=== PATIENT | male | born 1965 | race Caucasian/White ===

== ENCOUNTER 2018-11-15 08:42 | Inpatient (IN) | payer OTHER ==
[~2018-11-15] VITALS: Ht 177.8 cm; Wt 78.6 kg
[~2018-11-15 08:42] MED LIST: ESZO1TAB11 PO
--- NOTE | 2018-11-15 09:00 | NUR ---
patient came to the ER c/o flank pain started 2 days ago and worst today. On room air, breathing evenly and unlabored. connected to the monitor and pulse ox. kept comfortable, will continue to monitor accordingly.
[2018-11-15 09:18] LABS: BASOPHILS # (AUTO) 0.1 /CMM (0.0-0.2); BASOPHILS % (AUTO) 1.1 % (0.0-2.0); EOSINOPHILS % (AUTO) 2.5 % (0.0-6.0); HEMATOCRIT 44 % (39-51); LYMPHOCYTES # (AUTO) 2.1 /CMM (0.8-4.8); LYMPHOCYTES % (AUTO) 37.1 % (20.0-44.0); MEAN CORPUSCULAR HGB CONC 34 g/dl (31.0-36.0); MEAN CORPUSCULAR VOLUME 96 fL (80-96); MONOCYTES # (AUTO) 0.6 /CMM (0.1-1.30); MONOCYTES % (AUTO) 10.6 % (2.0-12.0); NEUTROPHILS # (AUTO) 2.7 /CMM (1.8-8.9); NEUTROPHILS % (AUTO) 48.7 % (43.0-81.0); PLATELET COUNT (AUTO) 179 /CMM (150-450); RED BLOOD CELL COUNT(AUTO) 4.57 MIL/uL (4.5-6.0); WHITE BLOOD COUNT (AUTO) 5.6 K/uL (4.3-11.0)
[2018-11-15 09:20] LABS: APPEARANCE,URINE Clear (CLEAR); BILIRUBIN,URINE Negative (NEGATIVE); BLOOD, URINE Trace-intact Ery/uL (NEGATIVE); COLOR,URINE Yellow (YELLOW); KETONES,URINE Negative (NEGATIVE); LEUKOCYTE ESTERASE ,URINE Negative (NEGATIVE); NITRITE, URINE Negative (NEGATIVE); PH,URINE 6.5 (5.0-8.0); PROTEIN,URINE Negative (NEGATIVE); UGLUCOSE Negative (NEGATIVE); UROBILINOGEN,URINE 0.2 EU/dL (0.2)
[2018-11-15 09:26] LABS: CALCIUM, SERUM 8.9 mg/dL (8.5-10.1); CREATININE 1.2 mg/dL (0.6-1.3); POTASSIUM 4.5 mmol/L (3.5-5.1)
[2018-11-15 09:28] LABS: BACTERIA,URINE None seen /HPF (None Seen); RBC,URINE 0-2 /HPF (0-2); SQUAMOUS EPITHELIAL CELL,UR Few /HPF (None Seen); WBC,URINE 0-2 /HPF (0-3)
[2018-11-15] MEDS ORDERED: ONDANSETRON HCL/PF - ER 4 MG/2 ML VIAL IV ONE (09:30)
[2018-11-15] MEDS ORDERED: MORPHINE SULFATE INJ 2 MG/ML DISP.SYRIN IV ONE ×3 (09:30→12:00)
[2018-11-15] MEDS ORDERED: KETOROLAC TROMETHAMINE INJ 30 MG/ML VIAL IV ONE ×2 (09:30→20:00)
[2018-11-15] MEDS ORDERED: MORPHINE SULFATE INJ 4 MG/ML DISP.SYRIN ONE ×3 (09:31→12:12)
[2018-11-15] MEDS ORDERED: KETOROLAC TROMETHAMINE INJ 30 MG/ML VIAL ONE (09:31)
[2018-11-15] MEDS ORDERED: ONDANSETRON HCL/PF 4 MG/2 ML VIAL ONE (09:31)
[2018-11-15 09:32] LABS: ALBUMIN 3.7 g/dL (3.4-5.0); BILIRUBIN,DIRECT 0.1 mg/dL (0.0-0.2); BILIRUBIN,TOTAL 0.7 mg/dL (0.2-1.0)
[2018-11-15] MEDS ORDERED: IV NS 0.9% 1,000 ML BAG IV ONE (10:00)
[2018-11-15] MEDS ORDERED: OMEP20CA10 PO (10:37)
--- NOTE | 2018-11-15 12:17 | NUR ---
ROOM 201
--- NOTE | 2018-11-15 12:54 | NUR ---
REPORT GIVEN TO PEDRO CHEN FOR KWAME
--- NOTE | 2018-11-15 13:00 | NUR ---
RN CONCURRENT REVIEW NOTES RECEIVED PATIENT FROM ER 53 Y/OLD MALE ON MED/SURG , Dx OF KIDNEY STONE. PATIENT A/O X4. PATIENT WAS COMPLAINING OF CONSTANT PAIN 6/10 PER PAIN SCALE ON LOWER BACK, AND RADIATED RIGHT FLANK AREA. PATIENT HAD NO ACUTE RESPIRATORY DISTRESS. V/S TAKEN BP -125/68, P-54, T-98, R-19, O2-96 ROOM AIR, IV ACCESS ON RIGHT AC AREA INTACT. SKIN ASSESSMENT DONE, SKIN INTACT. PATIENT AMBULATORY SELF CARE. GIVEN URINE STRAINER, AND EDUCATED. DR ADAME AWARE OF NEW PATIENT NAD MEDICATION. CONTINUED MONITORING.
[2018-11-15 13:03] VITALS: BP 125/68
--- NOTE | 2018-11-15 13:35 | NUR ---
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 PATIENT STABLE.
[2018-11-15] MEDS ORDERED: ZOLPIDEM TARTRATE 5 MG TABLET PO PRN (14:30)
[2018-11-15] MEDS ORDERED: HYDROCODONE/APAP 5/325MG 1 EACH TABLET PO PRN (14:30)
[2018-11-15] MEDS ORDERED: Z GUARD REMEDY 2 OZ OINT TP PRN (14:30)
[2018-11-15] MEDS ORDERED: MAGNESIUM HYDROXIDE 30 ML UDC PO PRN (14:30)
[2018-11-15] MEDS ORDERED: MAG HYDROX/AL HYDROX/SIMETH 30 ML UDC PO PRN (14:30)
[2018-11-15] MEDS ORDERED: ACETAMINOPHEN 325 MG TABLET PO PRN (14:30)
[2018-11-15] MEDS ORDERED: ONDANSETRON HCL/PF 4 MG/2 ML VIAL IVP PRN (14:30)
[2018-11-15] MEDS ORDERED: MORPHINE SULFATE INJ 2 MG/ML DISP.SYRIN IV PRN (15:00)
--- NOTE | 2018-11-15 15:14 | NUR ---
RN NOTES ADMINISTERED MORPHINE 2 MG/ML IV PUSH FOR PAIN 6/10 LOWER BACK PAIN PER PATIENT REQUEST, V/S TAKEN BP 125/67, P-60, CONTINUED MONITORING.
--- NOTE | 2018-11-15 15:28 | NUR ---
RN NOTES GET CALL BACK FROM UROLOGIST Dr. FLORES , FOR CONSULT, AND GET TO ORDER TORADOL 30 MG/ML IV PUSH Q 6 HR, ORDER TAKEN AND CARRIED OUT.
[2018-11-15] MEDS ORDERED: KETOROLAC TROMETHAMINE INJ 30 MG/ML VIAL IV PRN (15:30)
[2018-11-15 16:00] VITALS: BP 126/67
--- NOTE | 2018-11-15 16:35 | NUR ---
RN NOTES PATIENT'S PAIN ON LOWER BACK GETTING INCREASE AGAIN 01/03 AT THIS TIME, ADMINISTERED TORADOL 30 MG/ML IV PUSH PER PATIENT REQUEST, V/S TAKEN BP 126/67, P-50, CONTINUED MONITORING. FAMILY NEXT TO THE BED. GIVEN URINE STRAINER PATIENT , AND EDUCATED. PATIENT VERBALIZED UNDERSTANDING. CONTINUED MONITORING.
--- NOTE | 2018-11-15 17:44 | NUR ---
RN NOTES PATIENT STABLE, MEDICATION WERE ADMINISTERED FOR PAIN EFFECTIVE, FAMILY NEXT TO THE BED EFFECTIVE. CONTINUED MONITORING.
--- NOTE | 2018-11-15 17:55 | NUR ---
DR. BERGERON GAVE ORDER TO DISCHARGE PATIENT; NOTED AND CARRIED OUT. PATIENT AWARE AND AGREEABLE TO PLAN. Addendum: 11/15/18 at 2002 by WEI FERNANDEZ RN CORRECT TIME IS 1954
--- NOTE | 2018-11-15 18:30 | NUR ---
RN NOTES PATIENT IN THE ROOM WITH UROLOGIST Dr FLORES AT THIS TIME TALKING PATIENT AND . PATIENT STABLE, V/S STABLE. CALL LIGHT WITHIN TO REACH. ENDORSED ONCOMING NURSE FOR PLAN OF CARE.
--- NOTE | 2018-11-15 19:30 | NUR ---
RECEIVED PATIENT IN BED AWAKE; TALKING TO DR. FLORES. AO X 3, ABLE TO MAKE NEEDS KNOWN. NO ACUTE DISTRESS NOTED. MONITORED FOR PAIN. ON LOW BED WITH BILATERAL UPPER SIDE RAILS UP. CALL LINDSEY WITHIN EASY REACH. WILL CONTINUE TO MONITOR.
--- NOTE | 2018-11-15 19:41 | NUR ---
DR. FLORES IN UNIT; GAVE ORDER FOR TORADOL 30 MG IV PUSH X 1; NOTED AND CARRIED OUT. PATIENT INFORMED AND AGREEABLE. PER DR. FLORES, HE WANTS PATIENT TO BE DISCHARGED TONIGHT. WILL NOTIFY ON-CALL PHYSICIAN.
[2018-11-15 20:00] VITALS: BP 129/75
--- NOTE | 2018-11-15 20:49 | NUR ---
PATIENT GIVEN DISCHARGE INSTRUCTIONS AND SIGNED DISCHARGE PAPERS. PATIENT HAS WRITTEN RX FOR NORCO AND IBUPROFEN GIVEN TO HIM BY DR. FLORES. PT VERBALIZED THAT HE WILL MAKE APPOINTMENT TO SEE DR. FLORES IN HIS CLINIC. PATIENT AND COLLECTED ALL BELONGINGS. PATIENT IN STABLE CONDITION. ESCORTED TO ER ENTRANCE (WHERE WILL BE WAITING WITH CAR) IN WHEELCHAIR BY INSPECTING MACHINE ADJUSTER.
== END 2018-11-15 20:49 | disposition home or self-care (01) | DRG 694 ==
LOC: ER 08:42 → MEDSG2 12:34
PROVIDERS: ADMIT Family Medicine; ATTEND Family Medicine
DX: N13.2 Hydronephrosis with renal and ureteral calculous obstruction (principal); Z87.442 Personal history of urinary calculi; K21.9 Gastro-esophageal reflux disease without esophagitis; Z87.891 Personal history of nicotine dependence; R73.9 Hyperglycemia, unspecified; N28.1 Cyst of kidney, acquired
CPT/HCPCS: 36415; 72148-TC; 80048-TC; 80076-TC; 81000-TC; 83690-TC; 85025-TC; 87081-TC; 87086-TC; G0378; J1885; J2270; J2405; J7030